=== PATIENT | male | born 1965 | race Caucasian/White ===

== ENCOUNTER 2020-07-11 08:12 | Emergency (ER) | payer BC ==
[~2020-07-11] VITALS: Ht 167.6 cm; Wt 72.7 kg
[2020-07-11] MEDS ORDERED: LORazepam 2 mg/ml vial IM ONE (08:20)
[2020-07-11] MEDS ORDERED: diphenhydrAMINE 50 mg/ml inj IV ONE (08:20)
[2020-07-11] MEDS ORDERED: haloperidol lactate 5mg/ml inj IM ONE (08:20)
[2020-07-11] MEDS ORDERED: normal saline 1000ML IV soln IV ONE (08:25)
[2020-07-11 09:35] LABS: BASOPHILS % (AUTO) 0.8 % (0-1); EOSINOPHILS # (AUTO) 0.1 X10'3 (0-0.9); EOSINOPHILS % (AUTO) 1.2 % (0-6); HEMATOCRIT 49.4 % (42.0-52.0); HEMOGLOBIN 16.7 g/dl (14.0-17.9); LYMPHOCYTES # (AUTO) 1.4 X10'3 (1.1-4.8); LYMPHOCYTES % (AUTO) 28.8 % (21-51); MEAN CORPUSCULAR HGB CONC 33.9 g/dL (33.0-36.5); MEAN CORPUSCULAR VOLUME 91.4 FL (78-98); MEAN PLATELET VOLUME 6.9 FL (7.4-10.4); MONOCYTES # (AUTO) 0.5 X10'3 (0-0.9); MONOCYTES % (AUTO) 9.5 % (2-12); NEUTROPHILS % (AUTO) 59.7 % (42-75); PLATELET COUNT 310 X10'3 (140-440); RED CELL DISTRIBUTION WIDTH 14.5 % (11.5-14.5)
[2020-07-11 09:49] LABS: ALANINE AMINOTRANSFERASE 59 U/L (12-78); ALBUMIN 4.6 G/DL (3.4-5.0); ALBUMIN/GLOBULIN RATIO 1.3 (1.1-1.5); ALKALINE PHOSPHATASE 110 IU/L (46-116); ANION GAP 14 (8-16); ASPARTATE AMINO TRANSFERASE 45 U/L (10-37); BILIRUBIN,TOTAL 1.8 MG/DL (0.1-1.0); BLOOD UREA NITROGEN 14 MG/DL (7-18); BUN/CREATININE RATIO 13.9 (5.4-32.0); CALCIUM 9.2 MG/DL (8.5-10.1); CHLORIDE 101 MMOL/L (99-107); CREATININE 1.01 MG/DL (0.60-1.10); GLUCOSE 96 MG/DL (70-104); POTASSIUM 3.2 MMOL/L (3.5-5.1); SODIUM 141 MMOL/L (135-145); TOTAL PROTEIN 8.1 G/DL (6.4-8.2); eGFR 77 ML/MIN
[2020-07-11 09:58] LABS: ETHANOL < 0.010 GM/DL (0.0-0.010)
[2020-07-11 11:29] LABS: URINE AMPHETAMINE SCREEN NEGATIVE (Neg); URINE BARBITUATE SCREEN NEGATIVE (Neg); URINE BENZODIAZEPINES SCREEN NEGATIVE (Neg); URINE CANNABINOID SCREEN NEGATIVE (Neg); URINE COCAINE SCREEN NEGATIVE (Neg); URINE METHADONE SCREEN NEGATIVE (Neg); URINE OPIATE SCREEN NEGATIVE (Neg); URINE PHENCYCLIDINE SCREEN NEGATIVE (Neg)
[2020-07-11 12:16] LABS: CLARITY,URINE CLEAR (Clear); COLOR,URINE STRAW (Yellow); GLUCOSE, URINE NEGATIVE (Neg); KETONES,URINE TRACE mg/dl (Neg); LEUKOCYTE ESTERASE ,URINE NEGATIVE (Neg); NITRITES, URINE NEGATIVE (Neg); OCCULT BLOOD,URINE NEGATIVE (Neg); PROTEIN,URINE NEGATIVE (Neg); UROBILINOGEN,URINE 0.2 E.U/dL (0.2-1.0)
[2020-07-11 12:31] LABS: UA COLLECTION TYPE CLN CATCH MIDSTREAM
--- NOTE | 2020-07-11 12:44 | NUR ---
Pt. brought to bed 26 from ER. Pt. ambulates to the bathroom, and then goes back to bed. Patient sedated, but steady on feet. Security present x 2. Sleeping at this time. No needs identified.
--- NOTE | 2020-07-11 12:48 | NUR ---
Urine obtained and sent to lab
--- NOTE | 2020-07-11 13:17 | NUR ---
FAXED P[facility]
--- NOTE | 2020-07-11 13:32 | NUR ---
Patient sleeping supine in bed. No distress noted.
--- NOTE | 2020-07-11 17:08 | NUR ---
Patient sleeping supine in bed. No distress noted.
[2020-07-11] MEDS ORDERED: ARIP5TAB49 PO (18:57)
--- NOTE | 2020-07-11 19:00 | NUR ---
Received pt asleep in bed without signs of distress.
[2020-07-11] MEDS ORDERED: ARIPIPRAZOLE 15 MG TABLET PO SCH (21:00)
--- NOTE | 2020-07-11 21:00 | NUR ---
Pt awoke for dinner and was cooperative with assessment. Pt up to the bathroom and then was able to fall asleep. Pt denies suicidal thoughts. Pt does endorse some depression and exhibits delusional thoughts and talks about "energy forces" that are in his brain.
--- NOTE | 2020-07-11 23:00 | NUR ---
Pt remains asleep without signs of distress.
--- NOTE | 2020-07-12 01:00 | NUR ---
Pt up asking for a snack which was provided. Pt asked for more food 20 minutes later and pt was denied and encourage to relax and go to sleep. Pt cooperative.
--- NOTE | 2020-07-12 03:00 | NUR ---
Pt was able to fall back to sleep. Pt remains asleep without signs of distress.
--- NOTE | 2020-07-12 05:00 | NUR ---
Pt remains asleep without signs of distress.
--- NOTE | 2020-07-12 07:00 | NUR ---
pt is asleep, no needs at this time
--- NOTE | 2020-07-12 08:00 | NUR ---
pt is asleep, no needs at this time
--- NOTE | 2020-07-12 09:00 | NUR ---
pt is awake, calm, was acepting of medications
--- NOTE | 2020-07-12 10:10 | NUR ---
pt is being interviewed by Brynn BOWEN, calm, no needs at this time
--- NOTE | 2020-07-12 11:05 | NUR ---
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
[2020-07-12 11:46] VITALS: BP 109/81
--- NOTE | 2020-07-12 12:11 | NUR ---
pt is supine in bed, awake, no needs at this time
--- NOTE | 2020-07-12 13:05 | NUR ---
pt is awake, sitting on the side of his bed, calm, no needs at this time
--- NOTE | 2020-07-12 14:07 | NUR ---
pt has been up, remade his bed with clean sheets etc, no needs at this time
--- NOTE | 2020-07-12 14:47 | NUR ---
relieving RN for break, pt is sitting on bed, has been accepted to [facility] in approx 10-15 minutes, pt is calm and cooperative
[2020-07-15] MEDS ORDERED: ARIP15TA8 PO (12:19)
== END 2020-07-12 15:04 ==
LOC: ER 08:12
DX: F23 Brief psychotic disorder (principal); Z20.822 Contact with and (suspected) exposure to COVID-19; E87.6 Hypokalemia; Z88.0 Allergy status to penicillin
CPT/HCPCS: 36415; 80053; 80305; 80320; 81003; 84443; 85025; 87426; 96361; 96372; 96374; 99291; J1200; J1630; J2060; J7030